=== PATIENT | female | born 1980 | race Caucasian/White ===

== ENCOUNTER 2018-12-07 09:06 | Day surgery (SDC) | payer BC ==
[2018-12-04 14:56] VITALS: BMI 23.5
[2018-12-07 11:09] VITALS: TEMP 98.5
[2018-12-07 12:54] VITALS: BP 121/65; PULSE 58
== END 2018-12-07 12:15 | disposition home or self-care (01) ==
LOC: JASU-ENDO 09:06
PROVIDERS: ATTEND Internal Medicine Gastroenterology
PROC: 0DB38ZX Excision of Lower Esophagus, Via Natural or Artificial Opening Endoscopic, Diagnostic (ICD-10-PCS; 2018-12-07)
PROC: 0DB68ZX Excision of Stomach, Via Natural or Artificial Opening Endoscopic, Diagnostic (ICD-10-PCS; 2018-12-07)
PROC: 0DB28ZX Excision of Middle Esophagus, Via Natural or Artificial Opening Endoscopic, Diagnostic (ICD-10-PCS; 2018-12-07)
PROC: 0DBK8ZX Excision of Ascending Colon, Via Natural or Artificial Opening Endoscopic, Diagnostic (ICD-10-PCS; principal; 2018-12-07 10:00)
DX: Z12.11 Encounter for screening for malignant neoplasm of colon (principal); Z83.71 Family history of colonic polyps; D12.2 Benign neoplasm of ascending colon; K57.30 Diverticulosis of large intestine without perforation or abscess without bleeding; K21.0 Gastro-esophageal reflux disease with esophagitis; K31.7 Polyp of stomach and duodenum
CPT/HCPCS: 84703

== ENCOUNTER 2021-04-13 16:12 | Emergency (ER) | payer OTHER, BC ==
[2021-04-13 16:22] VITALS: BP 139/81; PULSE 84; BMI 22.6
[2021-04-13 16:23] VITALS: TEMP 97.9
== END 2021-04-13 20:47 | disposition home or self-care (01) ==
LOC: JERFT 16:12
DX: Z04.3 Encounter for examination and observation following other accident (principal); Z3A.18 18 weeks gestation of pregnancy; W19.XXXA Unspecified fall, initial encounter; Y92.9 Unspecified place or not applicable
CPT/HCPCS: 76801-TC; 99284-25